=== PATIENT | male | born 1975 | race Caucasian/White ===

== ENCOUNTER → 2018-01-04 | Outpatient (CLI) | payer OTHER ==
[~2018-01-04] MED LIST: CONRAY-43 43% 50ML VIAL (Q9960) As Ordered; PROHANCE 279.3MG/ML 5ML VIAL (A9576) As Ordered
== END ==
LOC: M RADPRO 06:30
DX: M75.80 Other shoulder lesions, unspecified shoulder (principal); R91.1 Solitary pulmonary nodule
CPT/HCPCS: 23350

== ENCOUNTER 2021-05-12 08:01 | Day surgery (SDC) | payer OTHER ==
[~2021-05-12] VITALS: Ht 180.3 cm; Wt 90.2 kg
[~2021-05-12 08:01] MED LIST changes: -CONRAY-43 43% 50ML VIAL (Q9960) As Ordered; +NS 1,000 ML IV ONE; -PROHANCE 279.3MG/ML 5ML VIAL (A9576) As Ordered
[2021-05-12] MEDS ORDERED: LIDOCAINE 2% 100MG/5ML SDV (FOR ANES.) As Ordered ONE (11:17)
[2021-05-12] MEDS ORDERED: propofoL 200 MG/20 ML VIAL As Ordered ONE (11:17)
[2021-05-12 11:48] VITALS: BP 144/87
== END 2021-05-12 11:48 | disposition home or self-care (01) ==
LOC: M OPP 08:01
PROVIDERS: ATTEND Internal Medicine Gastroenterology
DX: Z12.11 Encounter for screening for malignant neoplasm of colon (principal); K64.0 First degree hemorrhoids; G47.30 Sleep apnea, unspecified; Z79.899 Other long term (current) drug therapy; F17.220 Nicotine dependence, chewing tobacco, uncomplicated; Z80.42 Family history of malignant neoplasm of prostate; Z80.3 Family history of malignant neoplasm of breast

== ENCOUNTER → 2021-06-02 | Outpatient (REF) | LOC: M PLAIMG 10:41 | PROVIDERS: ATTEND Internal Medicine | DX: R06.02 Shortness of breath (principal); R52 Pain, unspecified ==

== ENCOUNTER → 2021-09-15 | Outpatient (REF) | LOC: M PLAIMG 13:09 | PROVIDERS: ATTEND Internal Medicine | DX: M19.041 Primary osteoarthritis, right hand (principal); M19.042 Primary osteoarthritis, left hand ==

== ENCOUNTER → 2022-11-18 | Outpatient (CLI) | payer OTHER | LOC: M RAD 08:25 | PROVIDERS: ATTEND Nurse Practitioner Family | DX: K76.0 Fatty (change of) liver, not elsewhere classified (principal) ==

== ENCOUNTER → 2024-06-12 | Outpatient (CLI) | payer OTHER | LOC: M RAD 15:30 | PROVIDERS: ATTEND Nurse Practitioner Family | DX: N48.30 Priapism, unspecified (principal); N50.3 Cyst of epididymis ==

== ENCOUNTER → 2024-06-30 | Outpatient (CLI) | payer OTHER | LOC: M RAD 14:14 | PROVIDERS: ATTEND Nurse Practitioner Family | DX: R91.1 Solitary pulmonary nodule (principal); J47.9 Bronchiectasis, uncomplicated; J84.10 Pulmonary fibrosis, unspecified ==